=== PATIENT | female | born 1955 | race Caucasian/White ===

== ENCOUNTER 2017-02-05 21:50 | Emergency (ER) | payer MEDICAID ==
[~2017-02-05] VITALS: Ht 154.9 cm; Wt 72.7 kg
[2017-02-05] MEDS ORDERED: ASPI-556 PO (23:57)
[2017-02-05] MEDS ORDERED: LINA5TAB PO (23:57)
[2017-02-05] MEDS ORDERED: PIOG15TA6 PO (23:57)
[2017-02-05] MEDS ORDERED: METF500T7 PO (23:57)
[2017-02-05] MEDS ORDERED: LISI-662 PO (23:57)
[2017-02-05] MEDS ORDERED: GABA-529 PO (23:57)
[2017-02-05] MEDS ORDERED: CALC-1038 PO (23:57)
[2017-02-06 00:02] LABS: GLUCOSE,POINT OF CARE 136 MG/DL (70-110)
[2017-02-06] MEDS ORDERED: HYDROCODONE/ACETAMINOPHEN 5-325 MG TABLET PO ONE (00:15)
[2017-02-06 00:33] VITALS: BP 142/72
== END 2017-02-06 01:08 | disposition home or self-care (01) ==
LOC: EMS 21:52
DX: S52.502A Unspecified fracture of the lower end of left radius, initial encounter for closed fracture (principal); M54.9 Dorsalgia, unspecified; I10 Essential (primary) hypertension; Z79.82 Long term (current) use of aspirin; V40.9XXA Unspecified car occupant injured in collision with pedestrian or animal in traffic accident, initial encounter; Y93.89 Activity, other specified; Y92.488 Other paved roadways as the place of occurrence of the external cause; Y99.8 Other external cause status
CPT/HCPCS: 82962; 99284